=== PATIENT | male | born 1995 | race Caucasian/White ===

== ENCOUNTER 2019-01-11 18:33 | Emergency (ER) | payer MEDICAID ==
[~2019-01-11] VITALS: Ht 167.6 cm; Wt 73.7 kg
[~2019-01-11 18:33] MED LIST: HC30CR25 TOP
[2019-01-11 18:49] VITALS: BP 134/67; PULSE 74; RESP 20; Ht 167.6 cm; Wt 73.7 kg
[2019-01-11] MEDS ORDERED: HYDROCODONE/APAP (5/325) TAB PO ONE (22:00)
[2019-01-11] MEDS ORDERED: LIDOCAINE 1% (MDV) 20 ML INJ SC ONE (22:00)
[2019-01-11] MEDS ORDERED: CEFTRIAXONE 1 GM INJ IM ONE (22:00)
[2019-01-11] MEDS ORDERED: TRIMETHOPRIM/SULFAMETHOX (DS) TAB PO ONE (22:00)
--- NOTE | 2019-01-11 22:18 | ERD ---
ER Documentation Chief Complaint Chief Complaint RIGHT LEG/KNEE PAIN AND SWELLING HPI This is a 23-year-old male patient who presents to the emergency room with complaint of multiple abscesses that began 15 days ago. Now with a large swollen fluctuant abscess to right lateral knee, right mid calf, left hip. Denies having any sick contacts, denies IV drug use, denies medical history, this patient does not have a primary care doctor. Denies any other symptoms such as fever or malaise. ROS All systems reviewed and are negative except as per history of present illness. Medications Home Meds Active Scripts Hydrocodone/Acetaminophen ([place] 5-325 Tablet) 1 Each Tablet, 1 TAB PO Q6H PRN for PAIN for 7 Days, #7 TAB Prov:KAITLIN PARISI NP 01/12/19 Ibuprofen* (Motrin*) 600 Mg Tab, 600 MG PO Q6 for 14 Days, #30 TAB Prov:KAITLIN PARISI NP 01/12/19 Sulfamethoxazole/Trimethoprim* (Bactrim Ds* Tablet) 1 Each Tablet, 1 TAB PO BID for 7 Days, #14 TAB Prov:KAITLIN PARISI NP 01/12/19 Cephalexin* (Keflex*) 500 Mg Capsule, 500 MG PO QID for 7 Days, #28 CAP Prov:KAITLIN PARISI NP 01/12/19 Hydrocortisone* Topical (Hydrocortisone* Topical) 2.5%-28.3 Gm Cream..g., 1 APPLIC TOP BID for 5 Days, #1 TUB Prov:SHRADDHA VALLEJO MD 05/26/18 Allergies Allergies: Coded Allergies: No Known Allergy (Unverified , 01/11/19) PMhx/Soc History of Surgery: No Anesthesia Reaction: No Hx Neurological Disorder: No Hx Respiratory Disorders: No Hx Cardiac Disorders: No Hx Psychiatric Problems: No Hx Miscellaneous Medical Probl: Yes (RIGHT LEG INFECTION) Hx Alcohol Use: No Hx Substance Use: No Hx Tobacco Use: No Smoking Status: Never smoker FmHx Family History: No diabetes, No coronary disease, No other Physical Exam Vitals Vital Signs Date Temp Pulse Resp B/P (MAP) Pulse Ox O2 O2 Flow FiO2 Time Delivery Rate 01/11/19 98.5 74 20 134/67 100 18:49 (89) Physical Exam Const: No acute distress Head: Atraumatic Eyes: Normal Conjunctiva, PERRL ENT: Normal External Ears, Nose and Mouth. Neck: Full range of motion. No meningismus. No lymphadenopathy Resp: Clear to auscultation bilaterally Cardio: Regular rate and rhythm, no murmurs Abd: Soft, non tender, non distended. Normal bowel sounds Skin: No petechiae or rashes. Abscess: right posterior lower leg, approx 5 cm with purulent center, +fluctuant, Red lesions to left hip and right thigh, nonfluctuant, not requiring drainage Back: No midline or flank tenderness Ext: No cyanosis, or edema Neur: Awake and alert Psych: Normal Mood and Affect Results 24 hrs Current Medications Medications Dose Sig/Viki Start Time Status Last (Trade) Ordered Route PRN Stop Time Admin Dose Reason Admin Ceftriaxone 1 gm ONCE ONCE 01/11/19 DC 01/11/19 Sodium IM 22:00 21:55 (Rocephin) 01/11/19 22:01 Lidocaine 20 ml ONCE ONCE 01/11/19 DC (Xylocaine SC 22:00 1% (Mdv) 20 01/11/19 22:01 ml) 1 tab ONCE ONCE 01/11/19 DC 01/11/19 Trimethoprim/ PO 22:00 21:55 01/11/19 22:01 Sulfamethoxaz ole (Bactrim (Ds)) 1 tab ONCE ONCE 01/11/19 DC 01/11/19 Acetaminophen PO 22:00 21:55 / 01/11/19 22:01 Hydrocodone Bitart ([place] (5/325)) Procedures/MDM This is a 23-year-old male patient who presents to emergency with multiple abscesses. ED COURSE: The patient was stable throughout ED course. I kept the patient and/or family informed of laboratory and diagnostic imaging results throughout the ED course. PROCEDURES: I&D: Right lower leg Anesthesia: 1% lidocaine Location: right posterior lower leg Tendon/Joint/Nerves: No injury Foreign body: None detected after copious irrigation and exploration Technique: Simple I&D Complexity: Small incision made with 15 blade, purulent drainage expressed, loculations broken up, copious irrigation, iodoform gauze packing lightly placed with gauze dressing. Instructions provided on wound care and follow-up. Patient's bleeding was easily controlled. No evidence of compartment syndrome, neurologic injury, vascular injury, open joint, tendon laceration, or foreign body. Patient is appropriate for outpatient follow up. 72 hour wound check. Scar minimization instructions given. MEDICATIONS GIVEN: [place]. Patient tolerated medication well with no adverse reactions. Patient reported improvement in pain. MDM: This patients soft tissue infection appears to be appropriate for outpatient treatment with close follow-up for reevaluation by a clinician within 24-48 hours. A serious, rapidly progressive infectious process is unlikely based upon the patients presentation and appearance of the infection. Antibiotic t reatment has been initiated here and response to treatment will be based on reassessment at close follow-up. The patient has been instructed on signs and symptoms of acute progression of infection and to return immediately if any of these occur. DISPOSITION: The patient has been discharge home to follow-up with community physician. Departure Diagnosis: Primary Impression: Abscess Condition: Stable Patient Instructions: Abscess, Incision And Drainage Referrals: [facility] Additional Instructions: Thank you very much for allowing us to participate in your care. Your health and safety is our top priority at [facility]. Call your primary care doctor TOMORROW for an appointment during the next 2-4 days and bring all the information and medications prescribed. Have prescriptions filled and follow precisely the directions on the label. If the symptoms get worse and your provider is unavailable, return to the Emergency Department immediately. KAITLIN PARISI NP Jan 11, 2019 22:18
[2019-01-12] MEDS ORDERED: HYDR-4011 PO (00:04)
[2019-01-12] MEDS ORDERED: IBUP-1542 PO (00:04)
[2019-01-12] MEDS ORDERED: CEPH-443 PO (00:04)
[2019-01-12] MEDS ORDERED: SULF1TAB31 PO (00:04)
== END 2019-01-12 00:16 | disposition home or self-care (01) ==
LOC: FTE 18:33
DX: L02.415 Cutaneous abscess of right lower limb (principal)
CPT/HCPCS: 10060; 96372; J0696; Z7502; Z7610

== ENCOUNTER 2019-01-14 10:30 | Emergency (ER) | payer MEDICAID ==
[~2019-01-14] VITALS: Ht 167.6 cm; Wt 75.3 kg
[~2019-01-14 10:30] MED LIST changes: +CEPH-443 PO; +HYDR-4011 PO; +IBUP-1542 PO; +SULF1TAB31 PO
[2019-01-14 10:36] VITALS: BP 134/81; PULSE 66; RESP 18; Ht 167.6 cm; Wt 75.3 kg
--- NOTE | 2019-01-14 12:57 | ERD ---
ER Documentation Chief Complaint Chief Complaint right leg wound check , denies pain HPI 23 yr old male complaining of wound to right leg. Patient is taking antibiotics as prescribed 2 days ago. He states the pain is improved. Denies any fevers. Denies other medical problems. NKDA. Surgical history denies. Social history denies ROS All systems reviewed and are negative except as per history of present illness. Medications Home Meds Active Scripts Hydrocodone/Acetaminophen ([place] 5-325 Tablet) 1 Each Tablet, 1 TAB PO Q6H PRN for PAIN for 7 Days, #7 TAB Prov:KAITLIN PARISI NP 01/12/19 Ibuprofen* (Motrin*) 600 Mg Tab, 600 MG PO Q6 for 14 Days, #30 TAB Prov:KAITLIN PARISI NP 01/12/19 Sulfamethoxazole/Trimethoprim* (Bactrim Ds* Tablet) 1 Each Tablet, 1 TAB PO BID for 7 Days, #14 TAB Prov:KAITLIN PARISI NP 01/12/19 Cephalexin* (Keflex*) 500 Mg Capsule, 500 MG PO QID for 7 Days, #28 CAP Prov:KAITLIN PARISI NP 01/12/19 Hydrocortisone* Topical (Hydrocortisone* Topical) 2.5%-28.3 Gm Cream..g., 1 APPLIC TOP BID for 5 Days, #1 TUB Prov:SHRADDHA VALLEJO MD 05/26/18 Allergies Allergies: Coded Allergies: No Known Allergy (Unverified , 01/14/19) PMhx/Soc History of Surgery: No Anesthesia Reaction: No Hx Neurological Disorder: No Hx Respiratory Disorders: No Hx Cardiac Disorders: No Hx Psychiatric Problems: No Hx Miscellaneous Medical Probl: Yes (RIGHT LEG INFECTION) Hx Alcohol Use: No Hx Substance Use: No Hx Tobacco Use: No FmHx Family History: No diabetes, No coronary disease, No other Physical Exam Vitals Vital Signs Date Temp Pulse Resp B/P (MAP) Pulse Ox O2 O2 Flow FiO2 Time Delivery Rate 01/14/19 98.7 66 18 134/81 100 10:36 (98) Physical Exam GENERAL: The patient is well-appearing, well-nourished, in no acute distress CHEST: Clear to auscultation bilaterally. There are no rales, wheezes or rhonchi. HEART: Regular rate and rhythm. No murmurs, clicks, rubs or gallops. EXTREMITIES: Equal pulses bilaterally. There is no peripheral clubbing, cyanosis or edema. No focal swelling or erythema. Full range of motion. NEUROLOGIC: Alert and oriented. Cranial nerves II through XII intact. Motor strength in all 4 extremities with 5 out of 5 strength. Sensation grossly intact. Normal speech and gait. SKIN: Healing abscess noted to the right medial leg inferior to the knee antecubital space. Mild induration but no draining pus or fluctuance. No fevers. No lymphatic streaking. Compartments soft Procedures/MDM MDM: 23-year-old male presenting for wound check. Patient had a previous abscess which is draining and healing appropriately. I have low suspicion for lymphatic infection. I have low suspicion for worsening infection. Patient is discharged with strict ER precautions and told to follow-up with primary care within 1 to 2 days for close evaluation. She is told if symptoms change or wor sen to return immediately to the ER. All questions answered at discharge Departure Diagnosis: Primary Impression: Encounter for wound re-check Condition: Stable Patient Instructions: Wound Care Referrals: [facility] YOU HAVE RECEIVED A MEDICAL SCREENING EXAM AND THE RESULTS INDICATE THAT YOU DO NOT HAVE A CONDITION THAT REQUIRES URGENT TREATMENT IN THE EMERGENCY DEPARTMENT. FURTHER EVALUATION AND TREATMENT OF YOUR CONDITION CAN WAIT UNTIL YOU ARE SEEN IN YOUR DOCTORS OFFICE WITHIN THE NEXT 1-2 DAYS. IT IS YOUR RESPONSIBILITY TO MAKE AN APPOINTMENT FOR FOLOW-UP CARE. IF YOU HAVE A PRIMARY DOCTOR --you should call your primary doctor and schedule an appointment IF YOU DO NOT HAVE A PRIMARY DOCTOR YOU CAN CALL OUR PHYSICIAN REFERRAL HOTLINE AT IF YOU CAN NOT AFFORD TO SEE A PHYSICIAN YOU CAN CHOSE FROM THE FOLLOWING [facility] [address] [facility]. [facility] [address] [employer] [facility] [facility] [address] [facility]. [facility] [address] [facility]. [facility] [address] [facility]. [facility]. [address] Additional Instructions: FOLLOW UP WITH YOUR PRIMARY CARE PHYSICIAN TOMORROW.Return to this facility if you are not improving as expected. GUILLE OLMOS PA-C Jan 14, 2019 12:57
== END 2019-01-14 11:57 | disposition home or self-care (01) ==
LOC: FTE 10:30
DX: Z48.01 Encounter for change or removal of surgical wound dressing (principal)
CPT/HCPCS: 99281